=== PATIENT | male | born 1945 | race Caucasian/White ===

== ENCOUNTER 2021-11-01 06:16 | Day surgery (SDC) | payer MEDICARE, BC, SELFPAY ==
[2021-11-01 06:35] VITALS: BP 133/55; PULSE 72; RESP 16; TEMP 36.2; O2SAT 100
[2021-11-01] MEDS: Tropicam./Phenyleph. (1/2.5%) 5 ML BTL OS ×3 (06:41→06:58)
--- NOTE | 2021-11-01 07:00 | W.ANESPRE ---
General Info Date of Service Date Performed: 11/01/21 Height: 6 ft Weight: 86.4 kg Body Mass Index (BMI): 25.8 Surgical Procedure: Operation Date: 11/01/21 07:40 Proposed Procedure Side Surgeon p Cataract Extraction with IOL Implant Left Miles Lares MD Meds Allergies and Home Medications Allergies Allergy/AdvReac Type Severity Reaction Status Date / Time latex Allergy Intermediate Itching Unverified 10/29/21 10:04 NARCOTICS Allergy Uncoded 10/29/21 10:04 Home Medication Medication Instructions Recorded metformin 500 mg tablet 500 mg PO BID 05/25/12 omega-3 fatty acids-fish oil 340 1 ea PO DAILY 05/25/12 mg-1,000 mg capsule (Fish Oil) atorvastatin 40 mg tablet 1 tab PO DAILY 10/28/21 ferrous fumarate 324 mg (106 mg 324 mg PO DAILY 10/28/21 iron) tablet furosemide 20 mg tablet 1 tab PO DAILY 10/28/21 glimepiride 4 mg tablet 4 mg PO DAILY 10/28/21 lactulose 10 gram/15 mL oral 45 ml PO BID 10/28/21 solution ondansetron HCl 4 mg tablet 4 mg PO Q8H PRN 10/28/21 pantoprazole 40 mg tablet,delayed 40 mg PO DAILY 10/28/21 release rifaximin 550 mg tablet (Xifaxan) 1 tab PO DAILY 10/28/21 spironolactone 100 mg tablet 1 tab PO DAILY 10/28/21 zinc sulfate 25 mg zinc (110 mg) 110 mg PO BID 10/28/21 tablet Current Visit Medications: Current Medications Generic Name Dose Route Start Last Admin Trade Name Freq PRN Reason Stop Dose Admin Acetaminophen 1,000 mg 11/01/21 06:00 Acetaminophen 500 Mg Tab PO Q4H PRN PRN Miscellaneous Medication 0 ml 11/01/21 06:00 Prednisolone 1%, Moxifloxacin 0.5%, Nepafenac 0.1% 5ml Btl OS DIRECTED [facility] Miscellaneous Medication 0 ml 11/01/21 06:00 11/01/21 06:58 Tropicam./Phenyleph. (1/2.5%) 5 Ml Btl OS 1 drp DIRECTED [facility] Administration Tetracaine HCl 0 ml 11/01/21 06:00 Tetracaine 0.5% 4 Ml Btl OS DIRECTED [facility] Medical History Medical History Balanitis xerotica obliterans Cirrhosis of liver Gastritis HLD (hyperlipidemia) HTN (hypertension) Hypertrophy of breast Insomnia Iron deficiency anemia Nonalcoholic steatohepatitis Type 2 diabetes mellitus Surgical History Surgical History Hx of colonoscopy Hx of esophagogastroduodenoscopy Hx of tonsillectomy Hx of vasectomy S/P operative procedure on shoulder S/P TIPS (transjugular intrahepatic portosystemic shunt) Tobacco Smoking/Tobacco Use Status: Former Tobacco Use Alcohol Alcohol Intake: former Substance Use Substance use: Never Substance use type: does not use Vital Signs and Lab Results Vital Signs Most Recent Vital Signs in EMR: Most Recent Vital Signs Temp Pulse Resp BP Pulse Ox 36.2 C L 72 16 133/55 L 100 11/01/21 06:35 11/01/21 06:35 11/01/21 06:35 11/01/21 06:35 11/01/21 06:35 Point of Care Results Point of Care Results: Finger Stick Blood Glucose 123 11/01/21 06:34 Lab Results Blood Type / Crossmatch: No Data to Display Complete Blood Count: No Data to Display Complete Metabolic Panel: No Data to Display Liver Function Panel: No Data to Display Coagulation Panel: No Data to Display Cardiac Panel: No Data to Display Arterial Blood Gas: No Data to Display Venous Blood Gas: No Data to Display Pancreas Panel: No Data to Display Thyroid Panel: No Data to Display Infectious Disease: No Data to Display Blood Cultures: No Data to Display Toxicology Panel: No Data to Display Anesthesia Assessment and Plan Anesthesia History Personal History: PONV Family History: No Family History of Anesthesia Complications Exercise Tolerance Exercise Tolerance: Metabolic Equivalents>4 Cardiac & Pulmonary Exam Cardiac Exam: Normal S1/S2 Heart Sounds Pulmonary Exam: Clear Bilateral Breath Sounds Implantable Cardiac Device Does patient have a Pacemaker or an ICD?: No Airway Exam Known Difficult Airway: No Mallampati Class: 3 Mouth Opening: Narrow (< 3cm) Thyromental Distance: Greater than 3 cm Neck Range of Motion: Full ROM Neck Circumference: Normal Teeth Condition: Removable Dentures/Plates Upper ASA Classification ASA Score: ASA 2 Emergency Case?: No NPO Status NPO Status: NPO Clears >2 hours, Solids >8 hours Anesthesia Plan Resuscitation Status: Full Code Anesthesia Technique: MAC Anesthesia Airway Planned: Natural Airway Monitors Used: Standard Monitors
[2021-11-01 07:21] VITALS: BMI 25.8
[2021-11-01] MEDS: Tetracaine 0.5% 4 ML BTL OS (07:24)
[2021-11-01] MEDS: Povidone-Iodine Ophth 30 ML BTL (07:27)
[2021-11-01] MEDS: Balanced Salt Soln.-PLUS 500 ML BAG (07:33)
[2021-11-01] MEDS: Lidocaine 2% Jelly 6 ML SYR (07:35)
--- NOTE | 2021-11-01 07:44 | W.ANESPOSTOP ---
Postoperative Evaluation Date, Time and Location Date Performed: 11/01/21 Time Performed: 08:03 Patient Location: Day Surgery Unit Vital Signs Most Recent Imported Vital Signs: Most Recent Vital Signs Temp Pulse Resp BP Pulse Ox 36.2 C L 72 16 133/55 L 100 11/01/21 06:35 11/01/21 06:35 11/01/21 06:35 11/01/21 06:35 11/01/21 06:35 Pain Score Most Recent Pain Score: Most Recent Pain Score Pain Level 0 11/01/21 06:35 Assessment Mental Status: Awake (Alert & Oriented to Patient Baseline) Airway and Respiratory Function: Patent airway with normal (patient baseline) respiratory exam Cardiovascular Function: Hemodynamically Stable Hydration Status: Adequately Hydrated Nausea & Vomiting: No Nausea or Vomiting Pain: Pt. Denies Any Pain Peripheral Nerve Block: Patient did not receive a nerve block
[2021-11-01 07:51] VITALS: BP 111/65; PULSE 62; RESP 18; TEMP 36.5; O2SAT 99
--- NOTE | 2021-11-01 07:52 | W.PM.DSUDISC ---
Discharge Plan Disposition Patient Disposition: HOME Condition: Good Discharge Details Attending Provider: Miles Lares Primary Care Provider: Taiwo Bhagat [place] Meds and New Rx's Prescriptions: No Action metformin 500 MG tablet 500 mg PO BID Fish Oil 1 EACH capsule 1 ea PO DAILY atorvastatin 40 mg tablet 1 tab PO DAILY ondansetron HCl [Zofran] 4 mg Tablet 4 mg PO Q8H PRN spironolactone 100 mg tablet 1 tab PO DAILY Label Comments: TAKE ONE TABLET BY MOUTH EVERY DAY zinc sulfate 25 mg zinc (110 mg) Tablet 110 mg PO BID pantoprazole 40 mg Tablet,Delayed Release (Dr/Ec) 40 mg PO DAILY glimepiride 4 mg tablet 4 mg PO DAILY Label Comments: TAKE ONE TABLET BY MOUTH EVERY DAY furosemide 20 mg tablet 1 tab PO DAILY ferrous fumarate 324 mg (106 mg iron) Tablet 324 mg PO DAILY lactulose 10 gram/15 mL solution 45 ml PO BID Label Comments: TAKE 30MLS BY MOUTH THREE TIMES DAILY NEEDED (2-3 BM DAILY ) Xifaxan 550 mg tablet 1 tab PO DAILY Discharge Instructions Stand Alone Forms: Post-op Topical Cataract, [place] ([facility]) Discharge Orders Discharge Orders: Discharge Order (Routine); Ordered 11/01/21 Ordered By: Miles Lares DS: Diagnosis Discharge Diagnosis (1) Cortical cataract of left eye: Status: Resolved (2) Nuclear sclerotic cataract of left eye: Status: Resolved
--- NOTE | 2021-11-01 07:53 | ROE_ITS ---
Date of service: 11/01/21 Time of Service: 07:53 Operative Note Operative Note DATE OF PROCEDURE: 11/01/21 PRE-OP DIAGNOSIS: Nuclear/cortical cataract, left eye POST-OP DIAGNOSIS: same PROCEDURE: Cataract extraction using phacoemulsification with intraocular lens implant, left eye SURGEON: Miles Lares ANESTHESIA TYPE: Local By Surgeon and MAC Refer to Anesthesia Record PATHOLOGY: none sent COMPLICATIONS: None Patient was transported to: same day Patient's condition: stable Implants: Froy [employer] Froy / [employer] Tecnis [id number] Indications: Progressive decreased vision due to cataract, left eye Procedure Description: CATARACT SURGERY OPERATIVE REPORT PREOPERATIVE DIAGNOSIS: 1. Nuclear/cortical cataract, left eye POSTOPERATIVE DIAGNOSIS: Same OPERATION: 1. Cataract extraction using phacoemulsification with posterior chamber intraocular lens implant, left eye. IOL: IOL [place] Feather Trimmer/Model: Froy & Froy / ARLENE Tecnis [id number] IOL Power: + 20.0 diopters IOL Serial Number: [id number] Optic Diameter: 6.0 mm Haptic/Overall Diameter: 13.0 mm PHACO INFO: [employer]Fx Medicalurion Vision System with OZil and Active Fluidics Cumulative Dispersed Energy (CDE): 8.47 seconds SURGEON: Miles Lares MD, ANGELIKA ANESTHESIA: Monitored A [facility] (MAC), with local sub-tenon's anesthetic infiltration COMPLICATIONS: None SPECIMENS: None INDICATIONS FOR PROCEDURE: The patient is a 76-year-old gentleman with history of diminished visual acuity in both eyes secondary to development of bilateral nuclear/cortical cataract. The option of cataract surgery was offered to the patient and he felt he was sym ptomatic enough that he wished to proceed. PROCEDURE: The correct surgical eye was identified and marked as the left eye and the pupil was dilated in the preoperative area using mydriatics and cycloplegics. The dilated pupil size was 7.0 mm. Oral sedation was administered in the form of an Imprimis MKO Melt (midazolam 3mg/ketamine 25mg/ondansetron 2mg). The patient elected to proceed without oral sedation. The patient was brought to the operating room where cardiopulmonary monitoring was instituted and surgical time-out was performed, confirming the correct operative eye and IOL power. Topical anesthesia was administered and ophthalmic povidone-iodine 5% was instilled into the conjunctival fornices. Lidocaine gel was applied to the cornea and the rosa-ocular area was prepped with Betadine 10% solution and draped in the usual sterile fashion for intraocular surgery, including an aperture drape. A Tegaderm transparent film dressing was cut in half and used t o cover the lashes and lid margins. Care was taken to sequester the lashes and lid margins under the Tegaderm dressing. A lid speculum was placed between the lids of the operative eye and the Da[employer] Lux[employer] Revalia operating microscope was maneuvered into position. Hansel scissors were then used to make a conjunctival buttonhole approximately 6mm posterior to the limbus in the inferonasal quadrant. Blunt dissection was carried out to expose bare sclera, and a blunt-tipped sub-tenon?s anesthesia cannula was introduced and passed posteriorly along the globe where non- preserved plain lidocaine was injected into posterior sub-Tenon?s space. A sideport knife was used to make a paracentesis port superiorly/superiortemporally. Intraocular phenylephrine/lidocaine was injected int the anterior chamber.. The anterior chamber was filled with viscoelastic. A keratome knife was used to construct a 2-plane near-clear corneal tunnel extending 2.0mm into clear cornea temporally. A flap was raised on the anterior capsule and capsulorhexis forceps were used to complete a continuous curvilinear capsulorhexis of 5.5 mm. Balanced salt solution was then used to perform cortical cleaving hydrodis section and nuclear hydrodelineation until the lens could be freely rotated within the capsular bag. The lens nucleus was then disassembled and removed within the capsular bag and iris plane using phacoemulsification. Residual cortical material was removed using the 45-degree angled silicone I/A tip with 0.3mm port. The posterior capsule was carefully polished to remove as much residual lens epithelial cells as safely possible. The capsular bag was then inflated and the anterior chamber deepened with viscoelastic. The lens implant described above was inserted into the capsular bag using the ARLENE [place] Injector. A Kuglen hook was used to dial the IOL into position. Residual viscoelastic was then removed first from posterior to the IOL, then from the anterior chamber using the I/A handpiece. The lens implant was noted to center nicely within the capsular bag. The incisions were stromally hydrated, and the anterior chamber was reformed using BSS. Then 0.5cc of moxifloxacin 1.0mg/ml were injected into the capsular bag and anterior chamber. The incisions were checked with a Weck spear and found to be secure. Several drops of ophthalmic povidone-iodine 5% were then applied to the eye followed by two drops of Imprimis combination prednisolone/moxifloxacin/nepafenac solution. The drapes were removed and a clear plastic protective eye shield was placed over the eye. The patient was then returned to Same Day Surgery in stable condition.
[2021-11-01 08:17] VITALS: BP 115/60; PULSE 66; RESP 18; TEMP 36.3; O2SAT 99
== END 2021-11-01 08:38 | disposition home or self-care (01) ==
LOC: SUR 06:17
PROVIDERS: PCP Internal Medicine; Visit Provider Ophthalmology
PROC: (CPT 66984; principal; 2021-11-01 07:30)
DX: H25.12 Age-related nuclear cataract, left eye (principal); E11.9 Type 2 diabetes mellitus without complications; I10 Essential (primary) hypertension; E78.5 Hyperlipidemia, unspecified
CPT/HCPCS: 66984; V2632

== ENCOUNTER 2021-11-15 06:17 | Day surgery (SDC) | payer MEDICARE, BC, SELFPAY ==
[2021-11-15 06:42] VITALS: BP 128/61; PULSE 71; RESP 16; TEMP 36.1; O2SAT 99
[2021-11-15] MEDS: Tropicam./Phenyleph. (1/2.5%) 5 ML BTL OD ×3 (06:45→07:00)
--- NOTE | 2021-11-15 07:18 | ANES.PREOP_ITS ---
General Info Date of Service Date Performed: 11/15/21 Height: 6 ft Weight: 84.3 kg Body Mass Index (BMI): 25.2 Surgical Procedure: Operation Date: 11/15/21 07:40 Proposed Procedure Side Surgeon p Cataract Extraction with IOL Implant Right Miles Lares MD Meds Allergies and Home Medications Allergies Allergy/AdvReac Type Severity Reaction Status Date / Time latex Allergy Intermediate Itching Unverified 11/15/21 06:38 NARCOTICS Allergy Uncoded 11/15/21 06:38 Home Medication Medication Instructions Recorded metformin 500 mg tablet 500 mg PO BID 05/25/12 omega-3 fatty acids-fish oil 340 1 ea PO DAILY 05/25/12 mg-1,000 mg capsule (Fish Oil) atorvastatin 40 mg tablet 1 tab PO DAILY 10/28/21 ferrous fumarate 324 mg (106 mg 324 mg PO DAILY 10/28/21 iron) tablet furosemide 20 mg tablet 1 tab PO DAILY 10/28/21 glimepiride 4 mg tablet 4 mg PO DAILY 10/28/21 lactulose 10 gram/15 mL oral 45 ml PO BID 10/28/21 solution ondansetron HCl 4 mg tablet 4 mg PO Q8H PRN 10/28/21 pantoprazole 40 mg tablet,delayed 40 mg PO DAILY 10/28/21 release rifaximin 550 mg tablet (Xifaxan) 1 tab PO DAILY 10/28/21 spironolactone 100 mg tablet 1 tab PO DAILY 10/28/21 zinc sulfate 25 mg zinc (110 mg) 110 mg PO BID 10/28/21 tablet Current Visit Medications: Current Medications Generic Name Dose Route Start Last Admin Trade Name Freq PRN Reason Stop Dose Admin Acetaminophen 1,000 mg 11/15/21 06:00 Acetaminophen 500 Mg Tab PO Q4H PRN PRN Miscellaneous Medication 0 ml 11/15/21 06:00 Prednisolone 1%, Moxifloxacin 0.5%, Nepafenac 0.1% 5ml Btl OD DIRECTED [facility] Miscellaneous Medication 0 ml 11/15/21 06:00 11/15/21 07:00 Tropicam./Phenyleph. (1/2.5%) 5 Ml Btl OD 1 drp DIRECTED [facility] Administration Tetracaine HCl 0 ml 11/15/21 06:00 Tetracaine 0.5% 4 Ml Btl OD DIRECTED [facility] PFSH Active Problems Active Problems: Problem Status Onset Code Posterior subcapsular age-related cataract, right eye H25.041 Nuclear sclerotic cataract of right eye H25.11 Cortical cataract of right eye H26.9 Nuclear sclerotic cataract of left eye H25.12 Cortical cataract of left eye H26.9 Medical History Medical History Balanitis xerotica obliterans Cirrhosis of liver Gastritis HLD (hyperlipidemia) HTN (hypertension) Hypertrophy of breast Insomnia Iron deficiency anemia Nonalcoholic steatohepatitis Type 2 diabetes mellitus Surgical History Surgical History Hx of colonoscopy Hx of esophagogastroduodenoscopy Hx of tonsillectomy Hx of vasectomy S/P operative procedure on shoulder S/P TIPS (transjugular intrahepatic portosystemic shunt) Tobacco Smoking/Tobacco Use Status: Former Tobacco Use Alcohol Alcohol Intake: former Substance Use Substance use: Never Substance use type: does not use Vital Signs and Lab Results Vital Signs Most Recent Vital Signs in EMR: Most Recent Vital Signs Temp Pulse Resp BP Pulse Ox 36.1 C L 71 16 128/61 99 11/15/21 06:42 11/15/21 06:42 11/15/21 06:42 11/15/21 06:42 11/15/21 06:42 Lab Results Blood Type / Crossmatch: No Data to Display Complete Blood Count: No Data to Display Complete Metabolic Panel: No Data to Display Liver Function Panel: No Data to Display Coagulation Panel: No Data to Display Cardiac Panel: No Data to Display Arterial Blood Gas: No Data to Display Venous Blood Gas: No Data to Display Pancreas Panel: No Data to Display Thyroid Panel: No Data to Display Infectious Disease: No Data to Display Blood Cultures: No Data to Display Toxicology Panel: No Data to Display Anesthesia Assessment and Plan Anesthesia History Personal History: PONV Family History: No Family History of Anesthesia Complications Exercise Tolerance Exercise Tolerance: Metabolic Equivalents>4 Pertinent Negatives Pertinent Negatives: No Major Cardiovascular Symptoms or Complaints and No Major Pulmonary Symptoms or Complaints Cardiac & Pulmonary Exam Cardiac Exam: Normal S1/S2 Heart Sounds Pulmonary Exam: Clear Bilateral Breath Sounds Implantable Cardiac Device Does patient have a Pacemaker or an ICD?: No Airway Exam Known Difficult Airway: No Mallampati Class: 3 Mouth Opening: Narrow (< 3cm) Thyromental Distance: Greater than 3 cm Neck Range of Motion: Full ROM Neck Circumference: Normal Teeth Condition: Removable Dentures/Plates Upper ASA Classification ASA Score: ASA 2 Emergency Case?: No NPO Status NPO Status: NPO Clears >2 hours, Solids >8 hours Anesthesia Plan Resuscitation Status: Full Code Anesthesia Technique: MAC Anesthesia Airway Planned: Natural Airway Monitors Used: Standard Monitors
[2021-11-15 07:21] VITALS: BMI 25.2
[2021-11-15] MEDS: Balanced Salt Soln.-PLUS 500 ML BAG (07:40)
[2021-11-15] MEDS: Lidocaine 2% Jelly 6 ML SYR (07:40)
[2021-11-15] MEDS: Povidone-Iodine Ophth 30 ML BTL (07:41)
[2021-11-15] MEDS: Tetracaine 0.5% 4 ML BTL OD (07:42)
[2021-11-15 07:54] VITALS: BP 115/56; PULSE 66; RESP 16; TEMP 36.3; O2SAT 99
--- NOTE | 2021-11-15 07:55 | W.PM.DSUDISC ---
Discharge Plan Disposition Patient Disposition: HOME Condition: Good Discharge Details Reason For Visit: Cataract Attending Provider: Miles Lares Primary Care Provider: Taiwo Bhagat [place] Meds and New Rx's Prescriptions: No Action metformin 500 MG tablet 500 mg PO BID Fish Oil 1 EACH capsule 1 ea PO DAILY atorvastatin 40 mg tablet 1 tab PO DAILY ondansetron HCl [Zofran] 4 mg Tablet 4 mg PO Q8H PRN spironolactone 100 mg tablet 1 tab PO DAILY Label Comments: TAKE ONE TABLET BY MOUTH EVERY DAY zinc sulfate 25 mg zinc (110 mg) Tablet 110 mg PO BID pantoprazole 40 mg Tablet,Delayed Release (Dr/Ec) 40 mg PO DAILY glimepiride 4 mg tablet 4 mg PO DAILY Label Comments: TAKE ONE TABLET BY MOUTH EVERY DAY furosemide 20 mg tablet 1 tab PO DAILY ferrous fumarate 324 mg (106 mg iron) Tablet 324 mg PO DAILY lactulose 10 gram/15 mL solution 45 ml PO BID Label Comments: TAKE 30MLS BY MOUTH THREE TIMES DAILY NEEDED (2-3 BM DAILY ) Xifaxan 550 mg tablet 1 tab PO DAILY Discharge Instructions Stand Alone Forms: Post-op Topical CataractJay ([facility]) Discharge Orders Discharge Orders: Discharge Order (Routine); Ordered 11/15/21 Ordered By: Miles Lares DS: Diagnosis Discharge Diagnosis (1) Posterior subcapsular age-related cataract, right eye: Status: Resolved (2) Nuclear sclerotic cataract of right eye: Status: Resolved (3) Cortical cataract of right eye: Status: Resolved
--- NOTE | 2021-11-15 07:56 | W.PM.OP ---
Date of service: 11/15/21 Time of Service: 07:56 Operative Note Operative Note DATE OF PROCEDURE: 11/15/21 PRE-OP DIAGNOSIS: Nuclear/cortical/posterior subcapsular cataract, right eye POST-OP DIAGNOSIS: same PROCEDURE: Cataract extraction using phacoemulsification with intraocular lens implant, right eye SURGEON: Miles Lares ANESTHESIA TYPE: Local By Surgeon and MAC Refer to Anesthesia Record ESTIMATED BLOOD LOSS: 0 PATHOLOGY: none sent COMPLICATIONS: None Patient was transported to: same day Patient's condition: stable Implants: Froy & Froy/ARLENE Tecnis [id number] Indications: Progressive visual loss due to cataract, right eye Procedure Description: CATARACT SURGERY OPERATIVE REPORT PREOPERATIVE DIAGNOSIS: 1. Nuclear/cortical/posterior subcapsular cataract, right eye POSTOPERATIVE DIAGNOSIS: Same OPERATION: 1. Cataract extraction using phacoemulsification with posterior chamber intraocular lens implant, right eye. IOL: IOL Women'S Studies Lecturer/Model: Froy & Froy / ARLENE Tecnis ZCB00 IOL Power: + 19.5 diopters IOL Serial Number: [id number] Optic Diameter: 6.0mm Haptic/Overall Diameter: 13.0mm PHACO INFO: David [employer] Medicalurion Vision System with OZil and Active Fluidics Cumulative Dispersed Energy (CDE): 6.61 seconds SURGEON: Miles Lares MD, ANGELIKA ANESTHESIA: Monitored Anesthesia Care (MAC), with local sub-tenon's anesthetic infiltration COMPLICATIONS: None SPECIMENS: None INDICATIONS FOR PROCEDURE: The patient is a 76-year-old gentleman with history of diminished visual acuity in both eyes secondary to the development of bilateral nuclear/cortical cataract. He is significantly symptomatic that he desired cataract surgery and attempt to improve and maximize his vision. He has already undergone cataract surgery in the left eye and is doing well postoperatively. He now presents for cataract surgery in the right eye. PROCEDURE: The correct surgical eye was identified and marked as the right eye and the pupil was dilated in the preoperative area using mydriatics and cycloplegics. The dilated pupil size was 7.0 mm. Oral sedation was administered in the form of an Imprimis MKO Melt (midazolam 3mg/ketamine 25mg/ondansetron 2mg). The patient was brought to the operating room where cardiopulmonary monitoring was instituted and surgical time-out was performed, confirming the correct operative eye and IOL power. Topical anesthesia was administered and ophthalmic povidone-iodine 5% was instilled into the conjunctival fornices. Lidocaine gel was applied to the cornea and the rosa-ocular area was prepped with Betadine 10% solution and draped in the usual sterile fashion for intraocular surgery, including an aperture drape. A Tegaderm transparent film dressing was cut in half and used to cover the lashes and lid margins. Care was taken to sequester the lashes and lid margins under the Tegaderm dressing. A lid speculum was placed between the lids of the operative eye and the David Lux[employer] Revalia operating microscope was maneuvered into position. Hansel scissors were then used to make a conjunctival buttonhole approximately 6mm posterior to the limbus in the inferonasal quadrant. Blunt dissection was carried out to expose bare sclera, and a blunt-tipped sub-tenon?s anesthesia cannula was introduced and passed posteriorly along the globe where non-preserved plain lidocaine was injected into posterior sub-Tenon?s space. A sideport knife was used to make a paracentesis port inferotemporally. Intraocular phenylephrine/lidocaine was injected into the anterior chamber. The anterior chamber was filled with viscoelastic. A keratome knife was used to construct a 2-plane near-clear corneal tunnel extending 2.0mm into clear cornea superiortemporally. A flap was raised on the anterior capsule and capsulorhexis forceps were used to complete a continuous curvilinear capsulorhexis of 5.0 mm. Balanced salt solution was then used to perform cortical cleaving hydrodissection and nuclear hydrodelineation until the lens could be freely rotated within the capsular bag. The lens nucleus was then disassembled and removed within the capsular bag and iris plane using phacoemulsification. Residual cortical material was removed using the I/A handpiece. The posterior capsule was carefully polished to remove as much residual lens epithelial cells as safely possible. The capsular bag was then inflated and the anterior chamber deepened with viscoelastic. The lens implant described above was inserted into the capsular bag using the ARLENE [place] Injector. A Kuglen hook was used to dial the IOL into position. Residual viscoelastic was then removed first from posterior to the IOL, then from the anterior chamber using the I/A handpiece. The lens implant was noted to center nicely within the capsular bag. The incisions were stromally hydrated, and the anterior chamber was reformed using BSS. Then 0.5cc of moxifloxacin 1.0mg/ml were injected into the capsular bag and anterior chamber. The incisions were checked with a Weck spear and found to be secure. Several drops of ophthalmic povidone-iodine 5% were then applied to the eye followed by two drops of Imprimis combination prednisolone/moxifloxacin/nepafenac solution. The drapes were removed and a clear plastic protective eye shield was placed over the eye. The patient was then returned to Same Day Surgery in stable condition.
--- NOTE | 2021-11-15 08:04 | W.ANESPOSTOP ---
Postoperative Evaluation Date, Time and Location Date Performed: 11/15/21 Time Performed: 08:04 Patient Location: Day Surgery Unit Vital Signs Most Recent Imported Vital Signs: Most Recent Vital Signs Temp Pulse Resp BP Pulse Ox 36.3 C L 66 16 115/56 L 99 11/15/21 07:54 11/15/21 07:54 11/15/21 07:54 11/15/21 07:54 11/15/21 07:54 Pain Score Most Recent Pain Score: Most Recent Pain Score Pain Level 0 11/15/21 07:54 Assessment Mental Status: Awake (Alert & Oriented to Patient Baseline) Airway and Respiratory Function: Patent airway with normal (patient baseline) respiratory exam Cardiovascular Function: Hemodynamically Stable Hydration Status: Adequately Hydrated Nausea & Vomiting: No Nausea or Vomiting Pain: Pt. Denies Any Pain Peripheral Nerve Block: Patient did not receive a nerve block
[2021-11-15 08:23] VITALS: BP 112/64; PULSE 69; RESP 16; TEMP 36.2; O2SAT 99
== END 2021-11-15 08:40 | disposition home or self-care (01) ==
PROVIDERS: PCP Internal Medicine; Visit Provider Ophthalmology
PROC: (CPT 66984; principal; 2021-11-15 07:30)
DX: H25.811 Combined forms of age-related cataract, right eye (principal); E11.9 Type 2 diabetes mellitus without complications; D50.9 Iron deficiency anemia, unspecified
CPT/HCPCS: 66984; V2632